=== PATIENT | female | born 1990 | race Caucasian/White ===

== ENCOUNTER 2016-08-19 04:22 | Emergency (ER) | payer MEDICAID, OTHER ==
[~2016-08-19] VITALS: Ht 154.9 cm; Wt 62.5 kg
[~2016-08-19 04:22] MED LIST: ACET325T33 PO; BEN25 PO; FERR28TA PO; IBUP800T25 PO; MUPI22OI2 TOP; ONDA4TAB14 PO; PRED50TA PO; PREN-39 PO; [UNRECOGNIZED DRUG - CODE] PO
[2016-08-19 04:29] VITALS: Ht 154.9 cm; Wt 62.5 kg
--- NOTE | 2016-08-19 05:36 | ERD ---
ER Documentation Chief Complaint Date/Time DATE: 08/19/16 TIME: 05:33 Chief Complaint cough x 4 days. also c/o sore throat HPI 25-year-old female presents chief complaint of cough and sore throat 4 days. Reports subjective fever and nasal congestion as well. She denies nausea, vomiting, neck stiffness, and ear pain. Sick contacts at home include her son, who is ill with ear pain and fever. She has tried only Tylenol, which does not provide relief of her symptoms. No aggravating factors. Denies recent travel. ROS All systems reviewed and are negative except as per history of present illness. Medications Home Meds Active Scripts Pseudoephedrine Hcl (Sudafed 12 Hour) 120 Mg Tablet.sa, 120 MG PO BID for 3 Days , #10 Prov:July Lake PA-C 08/19/16 Benzocaine/Menthol* (Cepacol* Sore Throat Lozenges) 1 Each Lozenge, 1 EACH MM q2h Y for SORE THROAT for 3 Days, LOZENGE Prov:July Lake PA-C 08/19/16 Benzonatate* (Tessalon Perle*) 100 Mg Capsule, 100 MG PO Q8H Y for COUGH for 3 Days, #15 CAP Prov:July Lake PA-C 08/19/16 Ondansetron (Ondansetron Odt) 4 Mg Tab.rapdis, 4 MG PO Q6H Y for NAUSEA AND/OR VOMITING, #10 TAB Prov:ANDRIY DE JESUS PA-C 12/21/15 Acetaminophen* (Tylenol*) 325 Mg Tablet, 2 TAB PO Q6 Y for PAIN AND OR ELEVATED TEMP, #30 TAB Prov:ANDRIY DE JESUS PA-C 12/21/15 Diphenhydramine Hcl* (Benadryl*) 25 Mg Cap, 25 MG PO Q6, #20 CAP Prov:LINO DILLON PA-C 10/20/15 Mupirocin* (Bactroban*) 2% -22 Gram Oint...g., 1 APPLIC TOP BID for 7 Days, EA Prov:LINO DILLON PA-C 10/20/15 Prednisone* (Prednisone*) 50 Mg Tablet, 50 MG PO DAILY for 3 Days, TAB Prov:GABE HAQUE PA-C 09/06/15 Diphenhydramine Hcl* (Benadryl*) 25 Mg Cap, 25 MG PO Q6, #30 CAP Prov:HAQUEGABE CHRISTIAN PA-C 09/06/15 Mupirocin* (Bactroban*) 2% -22 Gram Oint...g., 1 APPLIC TOP BID for 7 Days, EA Prov:HAQUEGABE CHRISTIAN PA-C 09/06/15 Ibuprofen* (Motrin*) 800 Mg Tab, 800 MG PO Q6H Y for PAIN AND OR ELEVATED TEMP, #30 TAB Prov:MING HERNANDEZ MD 12/24/14 Reported Medications Folic Acid (DULEEK-DP 15) 15 Mg Tablet, 15 MG PO 12/04/12 Ferrous Sulfate (Ferrous Sulfate) 1 Tab Tablet, 1 TAB PO TID 03/20/11 Vits W-Ca,Fe,Fa(<1MG) ( Vitamins) 1 Tab Tablet, 1 TAB PO DAILY 03/20/11 Allergies Allergies: Coded Allergies: Penicillins (Verified Allergy, Unknown, 08/19/16) PMhx/Soc Medical and Surgical Hx: pt denies Medical Hx History of Surgery: Yes Anesthesia Reaction: No Hx Neurological Disorder: No Hx Respiratory Disorders: No Hx Cardiac Disorders: No Hx Psychiatric Problems: No Hx Miscellaneous Medical Probl: No Hx Alcohol Use: No Hx Substance Use: No Hx Tobacco Use: No Smoking Status: Never smoker Physical Exam Vitals Vital Signs Date Time Temp Pulse Resp B/P Pulse Ox O2 Delivery O2 Flow Rate FiO2 08/19/16 04:29 98.5 69 20 102/60 98 Physical Exam GENERAL: Non-toxic. No apparent signs of distress. HEENT: Atraumatic. Bilateral eyes are PERRL EOM intact. Normal conjunctiva, no injection. No eyelid or lower eyelid swelling noted. Ears: Normal tympanic membrane, no erythema or bulging. No ear canal swelling. No ear discharge. Nose : no nasal discharge. Throat: Oropharynx normal. Tongue pink and moist. Mild tonsillar edema and erythema with no exudate. Uvula is midline. No drooling or pooling of secretions. No trismus. No lymphadenopathy. LUNGS: Clear to auscultation. No accessory muscle use. No wheezing, no crackles. No signs or symptoms of respiratory distress. HEART: Regular rate and rhythm. No murmurs, clicks, rubs or gallops. EXTREMITIES: No peripheral cyanosis or edema. No focal pain or notable trauma. Full range of motion. Good capillary refill. NEURO: The patient moves all 4 extremities with 5/5 strength. Cranial nerves are grossly intact. Normal mental status for age. Good muscle tone. SKIN: There is no apparent rash, petechiae, erythema or swelling. Good skin turgor. Procedures/MDM Patients multiple complaints are likely to be due to viral etiology. On examination there was no tonsillar edema or exudate, TMs were pink/pearly and non-bulging, lungs were CTAB w/o rhonchi or rales, and patient has no meningismus. Appears to be in NAD, vitals are stable. Therefore, I do not believe that any imaging or blood work is warranted. I have explained to the patient that antibiotics are not effective against viral infections, and can further contribute to antibiotic resistance. Patient advised to practice good hand hygiene to prevent spread of viruses. Patient advised to stay hydrated and use the following medications for symptomatic relief: - Tylenol to relieve RAMIREZ/fever/body aches. Patient advised to NOT exceed maximum daily dose of 3,000 mg. OR Motrin 600mg (do NOT exceed 3200 mg per day ) - Tessalon Perles for cough - Saline nasal mist and Sudafed for nasal congestion - Cepacol Lozenges for sore throat or warm salt water gargles I have a low suspicion for PE, pneumonia, TB, strep pharyngitis, peritonsillar abscess, retropharyngeal abscess, epiglottitis, OM, meningitis, and sepsis. Patient is stable for discharge for and outpatient management at this time. Advised to follow-up with PCP within 1-2 days. Patient is afebrile at time of discharge. Departure Diagnosis: Primary Impression: URI (upper respiratory infection) URI type: unspecified viral URI Qualified Code: J06.9 - Viral upper respiratory tract infection Condition: July Campos PA-C August 19, 2016 05:36
[2016-08-19] MEDS ORDERED: PSEU120T51 PO (05:38)
[2016-08-19] MEDS ORDERED: BENZ100C70 PO (05:38)
[2016-08-19] MEDS ORDERED: BENZ1LOZ52 MM (05:38)
== END 2016-08-19 06:32 | disposition home or self-care (01) ==
LOC: FTE 04:22
DX: J06.9 Acute upper respiratory infection, unspecified (principal)
CPT/HCPCS: 99283

== ENCOUNTER 2016-09-17 17:25 | Emergency (ER) | payer OTHER ==
[~2016-09-17] VITALS: Ht 154.9 cm; Wt 61.0 kg
[~2016-09-17 17:25] MED LIST changes: +BENZ100C70 PO; +BENZ1LOZ52 MM; +PSEU120T51 PO
[2016-09-17 17:40] VITALS: Ht 154.9 cm; Wt 61.0 kg
[2016-09-17] MEDS ORDERED: PRED20TA PO (18:44)
[2016-09-17] MEDS ORDERED: IBUP-1542 PO (18:44)
[2016-09-17] MEDS ORDERED: AZIT500T3 PO (18:44)
--- NOTE | 2016-09-17 18:57 | ERD ---
ER Documentation Chief Complaint Date/Time DATE: 09/17/16 TIME: 18:46 Chief Complaint FEVER, SORTHROAT & GENERALIZE BODY ACHES X2 DAYS HPI 25-year-old female complaining of fever, sore throat, headache and body aches 3 days. Patient reports pain with swallowing. She took Tylenol and Sudafed at home for her sore throat, last dose was 4 AM today. Patient has history of strep throat in the past, last episode was 1 year ago. Denies any other medical history. Denies cough or runny nose. ROS All systems reviewed and are negative except as per history of present illness. Medications Home Meds Active Scripts Prednisone* (Prednisone*) 20 Mg Tab, 60 MG PO DAILY for 3 Days, TAB Prov:KEISHA RAO NP 09/17/16 Ibuprofen* (Motrin*) 600 Mg Tab, 600 MG PO Q6H Y for PAIN AND OR ELEVATED TEMP, #30 TAB Prov:KEISHA RAO. GLENIS 09/17/16 Azithromycin* (Zithromax*) 500 Mg Tablet, 500 MG PO DAILY for 5 Days, TAB Prov:KEISHA RAO NP 09/17/16 Pseudoephedrine Hcl (Sudafed 12 Hour) 120 Mg Tablet.sa, 120 MG PO BID for 3 Days , #10 Prov:July Lake PA-C 08/19/16 Benzocaine/Menthol* (Cepacol* Sore Throat Lozenges) 1 Each Lozenge, 1 EACH MM q2h Y for SORE THROAT for 3 Days, LOZENGE Prov:July Lake PA-C 08/19/16 Benzonatate* (Tessalon Perle*) 100 Mg Capsule, 100 MG PO Q8H Y for COUGH for 3 Days, #15 CAP Prov:July Lake PA-C 08/19/16 Ondansetron (Ondansetron Odt) 4 Mg Tab.rapdis, 4 MG PO Q6H Y for NAUSEA AND/OR VOMITING, #10 TAB Prov:ANDRIY DE JESUS PA-C 12/21/15 Acetaminophen* (Tylenol*) 325 Mg Tablet, 2 TAB PO Q6 Y for PAIN AND OR ELEVATED TEMP, #30 TAB Prov:ANDRIY DE JESUSC 12/21/15 Diphenhydramine Hcl* (Benadryl*) 25 Mg Cap, 25 MG PO Q6, #20 CAP Prov:LINO DILLON PA-C 10/20/15 Mupirocin* (Bactroban*) 2% -22 Gram Oint...g., 1 APPLIC TOP BID for 7 Days, EA Prov:LINO DILLON PA-C 10/20/15 Prednisone* (Prednisone*) 50 Mg Tablet, 50 MG PO DAILY for 3 Days, TAB Prov:GABE HAQUE PA-C 09/06/15 Diphenhydramine Hcl* (Benadryl*) 25 Mg Cap, 25 MG PO Q6, #30 CAP Prov:GABE HAQUE PA-C 09/06/15 Mupirocin* (Bactroban*) 2% -22 Gram Oint...g., 1 APPLIC TOP BID for 7 Days, EA Prov:GABE HAQUE PA-C 09/06/15 Ibuprofen* (Motrin*) 800 Mg Tab, 800 MG PO Q6H Y for PAIN AND OR ELEVATED TEMP, #30 TAB Prov:MING HERNANDEZ MD 12/24/14 Reported Medications Folic Acid (DULEEK-DP 15) 15 Mg Tablet, 15 MG PO 12/04/12 Ferrous Sulfate (Ferrous Sulfate) 1 Tab Tablet, 1 TAB PO TID 03/20/11 Vits W-Ca,Fe,Fa(<1MG) ( Vitamins) 1 Tab Tablet, 1 TAB PO DAILY 03/20/11 Allergies Allergies: Coded Allergies: Penicillins (Verified Allergy, Unknown, 08/19/16) PMhx/Soc History of Surgery: Yes Anesthesia Reaction: No Hx Neurological Disorder: No Hx Respiratory Disorders: No Hx Cardiac Disorders: No Hx Psychiatric Problems: No Hx Miscellaneous Medical Probl: No Hx Alcohol Use: No Hx Substance Use: No Hx Tobacco Use: No Smoking Status: Never smoker Physical Exam Vitals Vital Signs Date Time Temp Pulse Resp B/P Pulse Ox O2 Delivery O2 Flow Rate FiO2 09/17/16 17:40 102.7 140 18 115/73 97 Physical Exam General: Well-developed, well-nourished, conscious and coherent, in no distress Skin: Warm and dry without rash, good texture and turgor Head: Normocephalic without evidence of trauma Eyes: Sclera and conjunctivae normal; pupils equal, round, and reactive to light; extraocular movements are intact Ears: Canals are patent. Tympanic membranes are clear Nose/Face: Without rhinorrhea Mouth/throat: Mucous membranes are moist. Posterior pharynx erythematous, swollen, with exudates. Neck: Supple without meningismus. Anterior cervical lymphadenopathy noted. Carotids are equal. Trachea midline. No bruits or JVD Chest: Normal AP diameter. Good expansion without retractions. Nontender. Lungs are clear to auscultate bilaterally with good tidal volume Heart: Regular rate and rhythm. No murmur, rub, or gallops heard Neuro: Alert and oriented 4, GCS 15. Cranial nerves grossly intact. Motor and sensory exams nonfocal. Moves all extremities. Speech clear. Gait normal Results 24 hrs Current Medications Medications (Trade) Dose Ordered Sig/Chauncey Route PRN Reason Start Time Stop Time Status Last Admin Dose Admin Ibuprofen (Motrin) 600 mg ONCE ONCE PO 09/17/16 19:00 09/17/16 19:01 09/17/16 18:44 Procedures/MDM 25-year-old female presented to ED with sore throat, fever, headache, anterior cervical lymphadenopathy, without cough for 3 days. She meets clinical criteria for strep pharyngitis. Patient is allergic to penicillin, azithromycin will be prescribed for the patient. Patient also be given a short course of prednisone to help reduce inflammation ibuprofen given to the patient in the ED for fever reduction. Patient appears well, stable for discharge and outpatient management. Medical decision making shared with patient and family. Education provided to patient and family. Patient and family expressed understanding of the plan. Medications on discharge: Azithromycin, ibuprofen, prednisone. Follow-up: Primary care provider in 2-3 days or return to ED if worse. Departure Diagnosis: Primary Impression: Strep pharyngitis Condition: Stable Patient Instructions: Pharyngitis, Strep (Presumed) Additional Instructions: Call your primary care doctor TOMORROW for an appointment during the next 2-3 days.See the doctor sooner or return here if your condition worsens before your appointment time. KEISHA RAO NP Sep 17, 2016 18:57
[2016-09-17] MEDS ORDERED: IBUPROFEN 600 MG TAB PO ONE (19:00)
[2016-09-17 19:15] VITALS: BP 108/69; PULSE 118; RESP 19; TEMP 100.1
== END 2016-09-17 19:38 | disposition home or self-care (01) ==
LOC: FTE 17:25
DX: J02.0 Streptococcal pharyngitis (principal); R40.2412 Glasgow coma scale score 13-15, at arrival to emergency department
CPT/HCPCS: Z7502; Z7610; 99284

== ENCOUNTER 2016-10-16 08:10 | Emergency (ER) | payer OTHER ==
[~2016-10-16] VITALS: Ht 157.5 cm; Wt 56.0 kg
[~2016-10-16 08:10] MED LIST changes: +AZIT500T3 PO; +IBUP-1542 PO; +PRED20TA PO
[2016-10-16 08:12] VITALS: Ht 157.5 cm; Wt 56.0 kg
--- NOTE | 2016-10-16 08:42 | ERD ---
ER Documentation Chief Complaint Date/Time DATE: 10/16/16 TIME: 08:41 Chief Complaint dysuria since yesterday HPI 25-year-old female otherwise healthy comes in with painful urination, urgency and frequency of urine that started yesterday associated with suprapubic abdominal pain. Patient complains of abdominal pain that started yesterday, it is localized, achy. She reports that she tries to go to void and feels as if there is nothing in her bladder. She denies any fevers, chills, vomiting, diarrhea. ROS All systems reviewed and are negative except as per history of present illness. Medications Home Meds Active Scripts Nitrofurantoin Monohyd Macrocr* (Macrobid*) 100 Mg Capsr, 100 MG PO BID for 7 Days, CAP Prov:LINO DILLON PA-C 10/16/16 Phenazopyridine Hcl* (Pyridium*) 100 Mg Tab, 100 MG PO TID Y for URINARY PAIN, # 8 TAB Prov:LINO DILLON PA-C 10/16/16 Prednisone* (Prednisone*) 20 Mg Tab, 60 MG PO DAILY for 3 Days, TAB Prov:KEISHA RAO. GLENIS 09/17/16 Ibuprofen* (Motrin*) 600 Mg Tab, 600 MG PO Q6H Y for PAIN AND OR ELEVATED TEMP, #30 TAB Prov:KEISHA RAO. MANAGER HEAVY EQUIPMENT 09/17/16 Azithromycin* (Zithromax*) 500 Mg Tablet, 500 MG PO DAILY for 5 Days, TAB Prov:KEISHA RAO. MANAGER HE[employer] EQUIPMENT 09/17/16 Pseudoephedrine Hcl (Sudafed 12 Hour) 120 Mg Tablet.sa, 120 MG PO BID for 3 Days , #10 Prov:July Lake PA-C 08/19/16 Benzocaine/Menthol* (Cepacol* Sore Throat Lozenges) 1 Each Lozenge, 1 EACH MM q2h Y for SORE THROAT for 3 Days, LOZENGE Prov:July Lake PA-C 08/19/16 Benzonatate* (Tessalon Perle*) 100 Mg Capsule, 100 MG PO Q8H Y for COUGH for 3 Days, #15 CAP Prov:July Lake PA-C 08/19/16 Ondansetron (Ondansetron Odt) 4 Mg Tab.rapdis, 4 MG PO Q6H Y for NAUSEA AND/OR VOMITING, #10 TAB Prov:ANDRIY DE JESUS PA-C 12/21/15 Acetaminophen* (Tylenol*) 325 Mg Tablet, 2 TAB PO Q6 Y for PAIN AND OR ELEVATED TEMP, #30 TAB Prov:ANDRIY DE JESUS PA-C 12/21/15 Diphenhydramine Hcl* (Benadryl*) 25 Mg Cap, 25 MG PO Q6, #20 CAP Prov:LINO DILLON PA-C 10/20/15 Mupirocin* (Bactroban*) 2% -22 Gram Oint...g., 1 APPLIC TOP BID for 7 Days, EA Prov:LINO DILLON PA-C 10/20/15 Prednisone* (Prednisone*) 50 Mg Tablet, 50 MG PO DAILY for 3 Days, TAB Prov:GABE HAQUE PA-C 09/06/15 Diphenhydramine Hcl* (Benadryl*) 25 Mg Cap, 25 MG PO Q6, #30 CAP Prov:GABE HAQUE PA-C 09/06/15 Mupirocin* (Bactroban*) 2% -22 Gram Oint...g., 1 APPLIC TOP BID for 7 Days, EA Prov:GABE HAQUE PA-C 09/06/15 Ibuprofen* (Motrin*) 800 Mg Tab, 800 MG PO Q6H Y for PAIN AND OR ELEVATED TEMP, #30 TAB Prov:MING HERNANDEZ MD 12/24/14 Reported Medications Folic Acid (DULEEK-DP 15) 15 Mg Tablet, 15 MG PO 12/04/12 Ferrous Sulfate (Ferrous Sulfate) 1 Tab Tablet, 1 TAB PO TID 03/20/11 Vits W-Ca,Fe,Fa(<1MG) ( Vitamins) 1 Tab Tablet, 1 TAB PO DAILY 03/20/11 Allergies Allergies: Coded Allergies: Penicillins (Verified Allergy, Unknown, 08/19/16) PMhx/Soc Medical and Surgical Hx: pt denies Medical Hx, pt denies Surgical Hx History of Surgery: Yes Anesthesia Reaction: No Hx Neurological Disorder: No Hx Respiratory Disorders: No Hx Cardiac Disorders: No Hx Psychiatric Problems: No Hx Miscellaneous Medical Probl: No Hx Alcohol Use: No Hx Substance Use: No Hx Tobacco Use: No Physical Exam Vitals Vital Signs Date Time Temp Pulse Resp B/P Pulse Ox O2 Delivery O2 Flow Rate FiO2 10/16/16 08:12 98.1 95 18 110/65 99 Physical Exam General: Well-developed, well-nourished. The patient appears in no acute distress. HEENT: Head is normocephalic, atraumatic. No scleral icterus. Neck: Supple. Nontender. Lungs: Clear to auscultation. Normal air movement. Heart: Regular rate and rhythm. S1 and S2 are normal. No murmurs, gallops, or rubs. Abdomen: Soft, nontender, nondistended. Bowel sounds are normoactive. Extremities: No clubbing or cyanosis. Normal pulses. Moving extremities x 4. No weakness. Neurologic: Alert and oriented 3. No focal deficits. Skin: Normal turgor. No rash or lesions. Results 24 hrs Laboratory Tests Test 10/16/16 08:54 Bedside Urine pH (LAB) 5.5 Bedside Urine Protein (LAB) 3+ Bedside Urine Glucose (UA) Negative Bedside Urine Ketones (LAB) Negative Bedside Urine Blood 3+ Bedside Urine Nitrite (LAB) Positive Bedside Urine Leukocyte Esterase (L 2+ Current Medications Medications (Trade) Dose Ordered Sig/Chauncey Route PRN Reason Start Time Stop Time Status Last Admin Dose Admin Nitrofurantoin Macrocrystals (Macrobid) 100 mg ONCE ONCE PO 10/16/16 09:00 10/16/16 09:01 Procedures/MDM ED course: Urine was negative. She was given Macrobid 100 mg by mouth. Medical decision making: This is a 25-year-old female comes in with dysuria, urgency and frequency for the past 1-2 days, comes in with a urinary tract infection. Patient does not show any signs of systemic infection, sepsis, pyelonephritis or kidney stones. I doubt acute appendicitis, patient's abdominal examination is benign. Urine does show positive nitrates and leukocytes will be treated with Macrobid. Departure Diagnosis: Primary Impression: UTI (urinary tract infection) Condition: Good LINO DILLON PA-C Oct 16, 2016 08:42
[2016-10-16 08:49] LABS: URINE BLOOD (Dip) POC 3+ (NEGATIVE)
[2016-10-16] MEDS ORDERED: PHEN-537 PO (08:57)
[2016-10-16] MEDS ORDERED: NITR-58 PO (08:57)
[2016-10-16] MEDS ORDERED: NITROFURANTOIN (SR) 100 MG CAP PO ONE (09:00)
== END 2016-10-16 09:10 | disposition home or self-care (01) ==
LOC: FTE 08:10
DX: N39.0 Urinary tract infection, site not specified (principal)
CPT/HCPCS: 81003; Z7502; Z7610; 99283

== ENCOUNTER 2016-12-02 19:35 | Emergency (ER) | payer OTHER ==
[~2016-12-02] VITALS: Ht 154.9 cm; Wt 63.5 kg
[~2016-12-02 19:35] MED LIST changes: +NITR-58 PO; +PHEN-537 PO
[2016-12-02 19:54] VITALS: Ht 154.9 cm; Wt 63.5 kg
[2016-12-02 20:33] LABS: URINE BLOOD (Dip) POC 1+ (NEGATIVE)
--- NOTE | 2016-12-02 20:57 | ERD ---
ER Documentation Chief Complaint Date/Time DATE: 12/02/16 TIME: 20:[address] AND DYSURIA X4 DAYS. +FEVER YESTERDAY HPI Is a 25-year-old female who presents to the emergency department today complaining of sore throat for the past 3-4 days. States she took Tylenol yesterday but no medications today. States she has had strep throat in the past. States she also has pain with urination for the past 4 days. Patient has had a urinary tract infection in the past. States she also think she has allergies because her nose is "swollen". Nausea vomiting, diarrhea, vaginal discharge ROS All systems reviewed and are negative except as per history of present illness. Medications Home Meds Active Scripts Phenazopyridine Hcl* (Pyridium*) 200 Mg Tab, 200 MG PO TID Y for URINARY PAIN, # 6 TAB Prov:BHUMI ALICEA PA-C 12/02/16 Acetaminophen* (Tylophen*) 500 Mg Capsule, 1 CAP PO Q6H Y for PAIN AND OR ELEVATED TEMP, #30 CAP Prov:BHUMI ALICEA PA-C 12/02/16 Cetirizine Hcl* (Zyrtec*) 10 Mg Capsule, 10 MG PO DAILY, #15 TAB.CHEW Prov:BHUMI ALICEA PA-C 12/02/16 Fluticasone Propionate (Flonase Allergy Relief) 9.9 Ml [place].susp, 2 SPRAY NASAL DAILY, #1 BOTTLE TO EACH NOSTRIL Prov:BHUMI ALICEA PA-C 12/02/16 Ibuprofen* (Motrin*) 800 Mg Tab, 800 MG PO Q6, #30 TAB Prov:BHUMI ALICEA PA-C 12/02/16 Nitrofurantoin Monohyd Macrocr* (Macrobid*) 100 Mg Capsr, 100 MG PO BID for 7 Days, CAP Prov:LINO DILLON PA-C 10/16/16 Phenazopyridine Hcl* (Pyridium*) 100 Mg Tab, 100 MG PO TID Y for URINARY PAIN, # 8 TAB Prov:LINO DILLON PA-C 10/16/16 Prednisone* (Prednisone*) 20 Mg Tab, 60 MG PO DAILY for 3 Days, TAB Prov:KEISHA RAO NP 09/17/16 Ibuprofen* (Motrin*) 600 Mg Tab, 600 MG PO Q6H Y for PAIN AND OR ELEVATED TEMP, #30 TAB Prov:JALEN,KEISHA Rolando. CAP AND STUD MACHINE OPERATOR 09/17/16 Azithromycin* (Zithromax*) 500 Mg Tablet, 500 MG PO DAILY for 5 Days, TAB Prov:JALEN,KEISHA X. CAP AND STUD MACHINE OPERATOR 09/17/16 Pseudoephedrine Hcl (Sudafed 12 Hour) 120 Mg Tablet.sa, 120 MG PO BID for 3 Days , #10 Prov:July Lake PA-C 08/19/16 Benzocaine/Menthol* (Cepacol* Sore Throat Lozenges) 1 Each Lozenge, 1 EACH MM q2h Y for SORE THROAT for 3 Days, LOZENGE Prov:July Lake PA-C 08/19/16 Benzonatate* (Tessalon Perle*) 100 Mg Capsule, 100 MG PO Q8H Y for COUGH for 3 Days, #15 CAP Prov:July Lake PA-C 08/19/16 Ondansetron (Ondansetron Odt) 4 Mg Tab.rapdis, 4 MG PO Q6H Y for NAUSEA AND/OR VOMITING, #10 TAB Prov:ANDRIY DE JESUS PA-C 12/21/15 Acetaminophen* (Tylenol*) 325 Mg Tablet, 2 TAB PO Q6 Y for PAIN AND OR ELEVATED TEMP, #30 TAB Prov:ANDRIY DE JESUS PA-C 12/21/15 Diphenhydramine Hcl* (Benadryl*) 25 Mg Cap, 25 MG PO Q6, #20 CAP Prov:LINO DILLON PA-C 10/20/15 Mupirocin* (Bactroban*) 2% -22 Gram Oint...g., 1 APPLIC TOP BID for 7 Days, EA Prov:LINO DILLON PA-C 10/20/15 Prednisone* (Prednisone*) 50 Mg Tablet, 50 MG PO DAILY for 3 Days, TAB Prov:GABE HAQUE PA-C 09/06/15 Diphenhydramine Hcl* (Benadryl*) 25 Mg Cap, 25 MG PO Q6, #30 CAP Prov:GABE HAQUE PA-C 09/06/15 Mupirocin* (Bactroban*) 2% -22 Gram Oint...g., 1 APPLIC TOP BID for 7 Days, EA Prov:GABE HAQUE PA-C 09/06/15 Ibuprofen* (Motrin*) 800 Mg Tab, 800 MG PO Q6H Y for PAIN AND OR ELEVATED TEMP, #30 TAB Prov:MING HERNANDEZ MD 12/24/14 Reported Medications Folic Acid (DULEEK-DP 15) 15 Mg Tablet, 15 MG PO 12/04/12 Ferrous Sulfate (Ferrous Sulfate) 1 Tab Tablet, 1 TAB PO TID 03/20/11 Vits W-Ca,Fe,Fa(<1MG) ( Vitamins) 1 Tab Tablet, 1 TAB PO DAILY 03/20/11 Allergies Allergies: Coded Allergies: Penicillins (Verified Allergy, Unknown, 12/02/16) PMhx/Soc Medical and Surgical Hx: pt denies Medical Hx, pt denies Surgical Hx History of Surgery: Yes Anesthesia Reaction: No Hx Neurological Disorder: No Hx Respiratory Disorders: No Hx Cardiac Disorders: No Hx Psychiatric Problems: No Hx Miscellaneous Medical Probl: No Hx Alcohol Use: No Hx Substance Use: No Hx Tobacco Use: No Smoking Status: Never smoker Physical Exam Vitals Vital Signs Date Time Temp Pulse Resp B/P Pulse Ox O2 Delivery O2 Flow Rate FiO2 12/02/16 19:54 99.2 77 18 97/51 99 Physical Exam Const: Nontoxic-appearing Head: Atraumatic Eyes: Normal Conjunctiva ENT: Ears TMs normal. Nose no drainage. Throat with mild erythema. No evidence of tonsillar exudate. Drainage posterior pharynx. Ulcer on tongue. Neck: Full range of motion..~ No meningismus. Resp: Clear to auscultation bilaterally Cardio: Regular rate and rhythm, no murmurs Abd: Soft, non tender, non distended. Normal bowel sounds Skin: No petechiae or rashes Back: No midline or flank tenderness Ext: No cyanosis, or edema Neur: Awake and alert Psych: Normal Mood and Affect Results 24 hrs Laboratory Tests Test 12/02/16 20:39 Bedside Urine pH (LAB) 6.0 Bedside Urine Protein (LAB) Trace Bedside Urine Glucose (UA) Negative Bedside Urine Ketones (LAB) Negative Bedside Urine Blood 1+ Bedside Urine Nitrite (LAB) Negative Bedside Urine Leukocyte Esterase (L Negative Procedures/MDM This is a 25-year-old female presents the emergency department today complaining of sore throat for the past 3-4 days and dysuria. Patient's ENT exam is benign for strep pharyngitis at this time. She is afebrile and otherwise well-appearing. There is no evidence of tonsillar exudates. Patient was talking on the phone in the waiting room. Low suspicion for strep pharyngitis, retropharyngeal abscess, peritonsillar abscess. Patient sore throat may be viral versus allergic rhinitis is causing drainage in her posterior pharynx. I also obtained a UA UA is negative for infection. Urine was sent for gonorrhea and chlamydia Patient given a prescription for Pyridium and Tylenol, Motrin, Zyrtec and Flonase. I did instruct patient that she continues to have chronic sore throat that she needs to follow-up with her primary care doctor for referral to ENT specialist. Patient understood At this time the patient is stable for discharge and outpatient management. Patient should follow up with their PCP in the next 1-2 days. They may return to the emergency department sooner for any persistent or worsening of symptoms. Patient understood and agreed with the plan. Departure Diagnosis: Primary Impression: Sore throat Additional Impression: Dysuria Condition: Fair BHUMI ALICEA PA-C Dec 02, 2016 20:57
[2016-12-02] MEDS ORDERED: ACET500C5 PO (21:21)
[2016-12-02] MEDS ORDERED: CETI10CA PO (21:21)
[2016-12-02] MEDS ORDERED: PHEN-538 PO (21:21)
[2016-12-02] MEDS ORDERED: FLUT9.9S NASAL (21:21)
[2016-12-02] MEDS ORDERED: IBUP800T25 PO (21:21)
[2016-12-02 21:47] VITALS: BP 110/61; PULSE 89; RESP 18; TEMP 98.5
== END 2016-12-02 21:49 | disposition home or self-care (01) ==
LOC: FTE 19:35
DX: J02.9 Acute pharyngitis, unspecified (principal); R30.0 Dysuria
CPT/HCPCS: 81003; Z7502; 99283

== ENCOUNTER 2017-03-05 18:41 | Emergency (ER) | payer OTHER ==
[~2017-03-05] VITALS: Ht 154.9 cm; Wt 63.5 kg
[~2017-03-05 18:41] MED LIST changes: +ACET500C5 PO; +CETI10CA PO; +FLUT9.9S NASAL; +PHEN-538 PO
[2017-03-05 18:47] VITALS: Ht 154.9 cm; Wt 63.5 kg
[2017-03-05] MEDS ORDERED: ACET500C5 PO (20:29)
[2017-03-05] MEDS ORDERED: CETI10CA PO (20:29)
[2017-03-05] MEDS ORDERED: IBUP-1542 PO (20:29)
[2017-03-05] MEDS ORDERED: GUAI120S26 PO (20:29)
[2017-03-05] MEDS ORDERED: ACETAMINOPHEN 325 MG TAB PO ONE (20:30)
[2017-03-05] MEDS ORDERED: IBUPROFEN 600 MG TAB PO ONE (20:30)
--- NOTE | 2017-03-05 20:44 | ERD ---
ER Documentation Chief Complaint Chief Complaint generalize body aches, cough, fever, chest congestion since yesterday HPI 26-year-old female presents here emergency department for complaints of cough fever runny nose nasal congestion that started yesterday. Patient has been having dry cough, does not cough up any phlegm or blood. Patient does not have any shortness of breath or wheezing. Patient has been having runny nose nasal congestion clear nasal discharge. Patient does not complain of sore throat or ear pain. Patient does not have any sick contacts. Patient took ibuprofen at home to help with symptoms with only mild relief. ROS All systems reviewed and are negative except as per history of present illness. Medications Home Meds Active Scripts Acetaminophen* (Tylophen*) 500 Mg Capsule, 1 CAP PO Q6H Y for PAIN AND OR ELEVATED TEMP, #20 CAP Prov:BASIL CALERO NP 03/05/17 Ibuprofen* (Motrin*) 600 Mg Tab, 600 MG PO Q6H Y for PAIN AND OR ELEVATED TEMP, #30 TAB Prov:BASIL CALERO NP 03/05/17 Cetirizine Hcl* (Zyrtec*) 10 Mg Capsule, 10 MG PO DAILY, #30 TAB.CHEW Prov:BASIL CALERO NP 03/05/17 Dpkkxvzcjrq-F-Neotfngjid Hb* (Guaifenesin* DM Syrup) 120 Ml Syrup, 10 ML PO Q4H Y for COUGH, #120 ML Prov:BASIL CALERO NP 03/05/17 Phenazopyridine Hcl* (Pyridium*) 200 Mg Tab, 200 MG PO TID Y for URINARY PAIN, # 6 TAB Prov:BHUMI ALICEA PA-C 12/02/16 Acetaminophen* (Tylophen*) 500 Mg Capsule, 1 CAP PO Q6H Y for PAIN AND OR ELEVATED TEMP, #30 CAP Prov:BHUMI ALICEA PA-C 12/02/16 Cetirizine Hcl* (Zyrtec*) 10 Mg Capsule, 10 MG PO DAILY, #15 TAB.CHEW Prov:BHUMI ALICEA PA-C 12/02/16 Fluticasone Propionate (Flonase Allergy Relief) 9.9 Ml [place].susp, 2 SPRAY NASAL DAILY, #1 BOTTLE TO EACH NOSTRIL Prov:BHUMI ALICEA PA-C 12/02/16 Ibuprofen* (Motrin*) 800 Mg Tab, 800 MG PO Q6, #30 TAB Prov:BHUMI ALICEA PA-C 12/02/16 Nitrofurantoin Monohyd Macrocr* (Macrobid*) 100 Mg Capsr, 100 MG PO BID for 7 Days, CAP Prov:LINO DILLON PA-C 10/16/16 Phenazopyridine Hcl* (Pyridium*) 100 Mg Tab, 100 MG PO TID Y for URINARY PAIN, # 8 TAB Prov:LINO DILLON PA-C 10/16/16 Prednisone* (Prednisone*) 20 Mg Tab, 60 MG PO DAILY for 3 Days, TAB Prov:KEISHA RAO NP 09/17/16 Ibuprofen* (Motrin*) 600 Mg Tab, 600 MG PO Q6H Y for PAIN AND OR ELEVATED TEMP, #30 TAB Prov:KEISHA RAO [employer] 09/17/16 Azithromycin* (Zithromax*) 500 Mg Tablet, 500 MG PO DAILY for 5 Days, TAB Prov:KEISHA RAO [employer] 09/17/16 Pseudoephedrine Hcl (Sudafed 12 Hour) 120 Mg Tablet.sa, 120 MG PO BID for 3 Days , #10 Prov:July Lake PA-C 08/19/16 Benzocaine/Menthol* (Cepacol* Sore Throat Lozenges) 1 Each Lozenge, 1 EACH MM q2h Y for SORE THROAT for 3 Days, LOZENGE Prov:Juyl Lake PA-C 08/19/16 Benzonatate* (Tessalon Perle*) 100 Mg Capsule, 100 MG PO Q8H Y for COUGH for 3 Days, #15 CAP Prov:July Lake PA-C 08/19/16 Ondansetron (Ondansetron Odt) 4 Mg Tab.rapdis, 4 MG PO Q6H Y for NAUSEA AND/OR VOMITING, #10 TAB Prov:ANDRIY DE JESUS PA-C 12/21/15 Acetaminophen* (Tylenol*) 325 Mg Tablet, 2 TAB PO Q6 Y for PAIN AND OR ELEVATED TEMP, #30 TAB Prov:ANDRIY DE JESUS PA-C 12/21/15 Diphenhydramine Hcl* (Benadryl*) 25 Mg Cap, 25 MG PO Q6, #20 CAP Prov:LINO DILLON PA-C 10/20/15 Mupirocin* (Bactroban*) 2% -22 Gram Oint...g., 1 APPLIC TOP BID for 7 Days, EA Prov:LINO DILLON PA-C 10/20/15 Prednisone* (Prednisone*) 50 Mg Tablet, 50 MG PO DAILY for 3 Days, TAB Prov:GABE HAQUE PA-C 09/06/15 Diphenhydramine Hcl* (Benadryl*) 25 Mg Cap, 25 MG PO Q6, #30 CAP Prov:GABE HAQUE PA-C 09/06/15 Mupirocin* (Bactroban*) 2% -22 Gram Oint...g., 1 APPLIC TOP BID for 7 Days, EA Prov:GABE HAQUE PA-C 09/06/15 Ibuprofen* (Motrin*) 800 Mg Tab, 800 MG PO Q6H Y for PAIN AND OR ELEVATED TEMP, #30 TAB Prov:MING HERNANDEZ MD 12/24/14 Reported Medications Folic Acid (DULEEK-DP 15) 15 Mg Tablet, 15 MG PO 12/04/12 Ferrous Sulfate (Ferrous Sulfate) 1 Tab Tablet, 1 TAB PO TID 03/20/11 Vits W-Ca,Fe,Fa(<1MG) ( Vitamins) 1 Tab Tablet, 1 TAB PO DAILY 03/20/11 Allergies Allergies: Coded Allergies: Penicillins (Verified Allergy, Unknown, 03/05/17) PMhx/Soc History of Surgery: Yes Anesthesia Reaction: No Hx Neurological Disorder: No Hx Respiratory Disorders: No Hx Cardiac Disorders: No Hx Psychiatric Problems: No Hx Miscellaneous Medical Probl: No Hx Alcohol Use: No Hx Substance Use: No Hx Tobacco Use: No Smoking Status: Never smoker FmHx Family History: No coronary disease, No diabetes, No other Physical Exam Vitals Vital Signs Date Time Temp Pulse Resp B/P Pulse Ox O2 Delivery O2 Flow Rate FiO2 03/05/17 18:47 99.9 725 20 103/75 97 Physical Exam GENERAL: The patient is well developed and appropriate for usual state of health, in no apparent distress. HEENT: Atraumatic. Ears: Normal tympanic membrane, no erythema or bulging. No ear canal swelling. No ear discharge. Nose: Erythematous nasal turbinates with clear nasal discharge. Throat: oropharynx erythematous with postnasal drip. No tonsillar swelling or tonsillar exudates. No lymphadenopathy. CHEST: Clear to auscultation bilaterally. There are no rales, wheezes or rhonchi. HEART: Regular rate and rhythm. No murmurs, clicks, rubs or gallops. No S3 or S4. ABDOMEN: Soft, nontender and nondistended. Good bowel sounds. No rebound or guarding. No gross peritonitis. No gross organomegaly or masses. No Barrios sign or McBurney point tenderness. BACK: No midline or flank tenderness. EXTREMITIES: Equal pulses bilaterally. There is no peripheral clubbing, cyanosis or edema. No focal swelling or erythema. Full range of motion. Grossly neurovascularly intact. NEURO: Alert and oriented. Cranial nerves 2-12 intact. Motor strength in all 4 extremities with 5/5 strength. Sensation grossly intact. Normal speech and gait. SKIN: There is no apparent rash or petechia. The skin is warm and dry. HEMATOLOGIC AND LYMPHATIC: There is no evidence of excessive bruising or lymphedema. No gross cervical, axillary, or inguinal lymphadenopathy. Results 24 hrs Current Medications Medications (Trade) Dose Ordered Sig/Chauncey Route PRN Reason Start Time Stop Time Status Last Admin Dose Admin Ibuprofen (Motrin) 600 mg ONCE ONCE PO 03/05/17 20:30 03/05/17 20:31 DC Acetaminophen (Tylenol Tab) 650 mg ONCE ONCE PO 03/05/17 20:30 03/05/17 20:31 DC Patient was given medicines for fever control here in the emergency department. After treatment, patient temperature improved and lower. Patient appears well and is hemodynamically stable. Procedures/MDM Medical Decision Making: Patient symptoms are most likely consistent with upper respiratory tract infection which viral in origin. There is low suspicion for Pneumonia at this time since patients lungs sounds are clear, patient O2 saturation is normal and patient doesnt show any respiratory distress. Radiology exams not indicated at this time. There is low suspicion for other cardiopulmonary emergencies at this time such as CHF, Pulmonary Embolism, Pneumothorax, Aortic Aneurysm or any other cardiopulmonary emergencies at this time. There is low suspicion for sepsis. Patient appears well and is hemodynamically stable. Fever is controlled with medicines. Disposition: Home. Condition: Stable Prescriptions: Guaifenesin DM Zyrtec ibuprofen Tylenol Instructions: Patient is advised to take medications as prescribed. Patient is advised to rest. Patient advised to increase fluid intake, do humidifier at home and if possible, do salt water gargles. Patient is advised that if symptoms are worse, shortness of breath, uncontrolled fever, stridor, vomiting, worst signs and symptoms to return to emergency department immediately. Otherwise, patient is advised to follow up with primary doctor in 5-7 days. Disclaimer: Inadvertent spelling and grammatical errors are likely due to EHR/ dictation software use and do not reflect on the overall quality of patient care. Also, please note that the electronic time recorded on this note does not necessarily reflect the actual time of the patient encounter. Departure Diagnosis: Primary Impression: URI (upper respiratory infection) URI type: unspecified viral URI Qualified Code: J06.9 - Viral upper respiratory tract infection Condition: Stable Patient Instructions: Uri, Viral, No Abx (Adult) BASIL CALERO NP Mar 05, 2017 20:44
[2017-03-05 21:57] VITALS: PULSE 122; RESP 22; TEMP 98.3
== END 2017-03-05 21:45 | disposition home or self-care (01) ==
LOC: FTE 18:41
DX: J06.9 Acute upper respiratory infection, unspecified (principal)
CPT/HCPCS: Z7502; Z7610; 99283

== ENCOUNTER 2019-02-04 23:14 | Emergency (ER) | payer OTHER ==
[~2019-02-04] VITALS: Ht 152.4 cm; Wt 62.1 kg
[~2019-02-04 23:14] MED LIST changes: +BEN50 PO; +BENZ-6 PO; -BENZ100C70 PO; +CIPR500S2 PO; +EPIN0.3P4 INJ; +FAMO-96 PO; +GUAI120S25 PO; -IBUP800T25 PO; +IBUP800T48 PO; +LORA10TA3 PO; +PSEU120T12 PO; -PSEU120T51 PO
[2019-02-04 23:21] VITALS: Ht 152.4 cm; Wt 62.1 kg
[2019-02-05] MEDS ORDERED: FAMOTIDINE 20 MG TAB PO ONE
[2019-02-05] MEDS ORDERED: METHYLPREDNISOLONE 125 MG INJ IM ONE
[2019-02-05] MEDS ORDERED: DIPHENHYDRAMINE 25 MG CAP PO ONE
[2019-02-05 00:36] VITALS: BP 105/69; PULSE 67; RESP 14
== END 2019-02-05 00:36 | disposition home or self-care (01) ==
LOC: FTE 23:14
DX: L50.9 Urticaria, unspecified (principal)
CPT/HCPCS: 96372; J2930; Z7502; Z7610